=== PATIENT | female | born 1940 | race Caucasian/White ===

== ENCOUNTER → 2016-05-15 | Outpatient (CLI) | payer OTHER ==
[2015-05-26 11:07] VITALS: BP 148/72
--- NOTE | 2016-05-15 12:56 | CT ---
HISTORY: Altered mental status, ataxia, dizziness Study: CT brain without contrast Comparison: None Technique: Multiple axial images of the brain were obtained from the skull base to the vertex witho ut administration of IV contrast. AEC was utilized. Findings: No acute intraparenchymal hemorrhage or mass can be identified. No extra-axial fluid collections ar e seen. No alteration in the attenuation of the brain parenchyma can be identified to suggest acute or subacute ischemic change. There is chronic appearing right occipital encephalomalacia most comp atible with previous infarction with ex vacuo change involving the right lateral ventricle. There i s extensive chronic periventricular white matter disease observed with an old lacunar infarct in the left thalamus. If there is high clinical suspicion for an acute or subacute ischemic event, MRI wo uld be recommended. There is global cerebral volume loss with ex vacuo change. Extracranial structur es are grossly unremarkable. IMPRESSION: Chronic appearing ischemic changes as detailed above without definite acute intracranial process. Reported By:
== END ==
LOC: RAD 12:21
PROVIDERS: ATTEND Internal Medicine
DX: R41.82 Altered mental status, unspecified (principal); R26.89 Other abnormalities of gait and mobility; R42 Dizziness and giddiness
CPT/HCPCS: 70450

== ENCOUNTER → 2016-05-16 | Outpatient (CLI) | payer OTHER ==
[2015-05-26 11:07] VITALS: BP 148/72
--- NOTE | 2016-05-16 11:49 | MRI ---
STUDY: MRI OF THE BRAIN WITHOUT GADOLINIUM HISTORY: Changes in gait. Memory loss. Headache and dizziness. Technique: Multiplanar multi-sequence MRI of the brain was obtained utilizing standard departmental protocol. Sagittal and axial T1, axial T2, FLAIR, diffusion (DWI/ADC) images through the brain were performed. Comparison: Head CT from May 15, 2016. Findings: The sulci, cisterns and ventricles are prominent consistent with diffuse volume loss. There are conf luent and scattered foci of T2 prolongation in the periventricular and subcortical white matter of b oth hemispheres. This is a nonspecific finding which likely represents microangiopathic change in a patient of this age. There is a small old infarct in the right occipital lobe with associated encephalomalacia. There is a larger area of acute to early subacute infarction with associated diffusion abnormality and T2 pro longation in the right occipital lobe. There are several smaller acute to early subacute infarcts i n the right thalamus. There is no evidence of acute hemorrhage, mass, mass effect, or midline shift. There are no abnormal intra-axial or extra-axial fluid collections. The major intracranial vascular flow voids appear intact. The vertebral arteries are codominant. The re is bilateral aphakia. IMPRESSION: 1. Acute to early subacute infarct in the right occipital lobe and right thalamus. 2. 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 3. Nonspecific white matter change and volume loss. Reported By:
--- NOTE | 2016-05-16 11:53 | MRI ---
STUDY: MRA OF THE BRAIN HISTORY: Changes in gait. Memory loss. Headaches and dizziness. Comparison: Head CT from May 15, 2016. Technique: 3D [id number] imaging of the intracranial circulation was performed. Findings: There is image degradation due to patient motion. 3D [id number] MRA examination shows normal flow related enhancement in the major intracranial ar teries. There is no evidence of hemodynamically significant stenosis or aneurysm. There appears to b e a WHEELAGE CLERK on the left. No posterior communicating arteries identified on the right. The right P1 and P2 WHEELAGE CLERK segments appear intact. The vertebral arteries appear codominant. IMPRESSION: 1. Normal MRA of the brain, with anatomic variation as described. Reported By:
== END ==
LOC: RAD 10:30
PROVIDERS: ATTEND Nurse Practitioner Family
DX: R26.89 Other abnormalities of gait and mobility (principal); R41.3 Other amnesia; Z86.73 Personal history of transient ischemic attack (TIA), and cerebral infarction without residual deficits; R42 Dizziness and giddiness
CPT/HCPCS: 70544; 70551; A4222